=== PATIENT | male | born 1955 | race Caucasian/White ===

== ENCOUNTER 2020-04-09 14:34 | Outpatient (CLI) | payer OTHER, SELFPAY ==
--- NOTE | ~2020-04-09 | US_ITS ---
EXAMINATION: US art doppler w press LE BI DATE: 04/10/2020 08:30 CDT INDICATION: Frontal vascular disease. Spinal stenosis. TECHNIQUE: Segmental pressures and plethysmographic and Doppler waveforms of the brachial and lower e xtremity arteries were obtained. COMPARISON: None. FINDINGS: Right and left brachial artery pressures of 125 mm Hg and 1:30 mm Hg, respectively, are concordant (n ormal difference <= 30 mmHg). The right high-thigh pressure index is 1.28 (normal > 1.2). The right ankle-brachial index (TEMO) is 1 .28 (normal >= 0.9-1.0). The right great toe-brachial index (TBI) is 1.02 (normal >= 0.60). The right lower extremity segmental pressure gradients are normal (normal gradients <= 20-30 mmHg between mimi cent levels on the same leg or the same levels on the two legs). Arterial Doppler waveforms are mixed biphasic and triphasic. The left high-thigh pressure index is 1.38. The left TEMO is 1.21. The left TBI is 0.99. The left lowe r extremity segmental pressure gradients are normal. Arterial Doppler waveforms are mixed biphasic an d triphasic. IMPRESSION: 1. Normal bilateral ankle-brachial indices. Reviewed, dictated and finalized at location A.
--- NOTE | ~2020-04-09 | XR_ITS ---
EXAMINATION: XR lumbar spine 2-3V EXAM DATE: 04/09/2020 15:04 INDICATION: Lumbosacral radiculopathy, low back pain. TECHNIQUE: Lumber spine frontal, lateral, lateral L5-S1 projections for interpretation. There is no prior study for comparison. FINDINGS: Posterior lumbar fusion L3-5, hardware appears intact. There is mild diffuse loss of lumba r vertebral body heights without acute fracture line. Small to moderate-sized thoracolumbar disc dise ase and endplate osteophytes. No endplate erosive change. There is moderate aortoiliac arteriosclerot ic disease. The vertebral bodies are aligned in the AP dimension. Sacrum, sacroiliac joints, sacra l arcuate lines are intact. IMPRESSION: 1. L3-5 fusion. 2. Mild to moderate lumbar disc disease. Reviewed, dictated and finalized at location B.
== END 2020-04-09 14:35 | disposition home or self-care (01) ==
PROVIDERS: PCP Family Medicine; Referring Provider Pain Medicine Interventional Pain Medicine; Visit Provider Family Medicine
DX: M48.00 Spinal stenosis, site unspecified (principal); Z98.1 Arthrodesis status; M51.36 Other intervertebral disc degeneration, lumbar region
CPT/HCPCS: 72100; 93923

== ENCOUNTER → 2021-05-30 14:48 | Outpatient (CLI) | payer OTHER, SELFPAY ==
--- NOTE | ~2021-05-30 | XR_ITS ---
XR lumbar spine 2-3V DATE: 05/30/2021 15:17 INDICATION: Back pain, radiculopathy TECHNIQUE: AP, lateral, coned lateral lumbosacral views COMPARISON: 04/09/2020 lumbar spine FINDINGS: Posterior spinal fusion at L4-S1 including bilateral pedicle screws and rods. Status post lower lumbar laminectomy. Transitional first sacral vertebra. The hardware appears intact without fracture or displacement. There is moderate degenerative disc disease including spurring throughout the lumbar spine. The sacroiliac joints are normally aligned. There is extensive calcification of the abdominal aorta, without evidence of aneurysm. IMPRESSION: Reviewed, dictated and finalized at location A. IMPRESSION:
== END ==
PROVIDERS: PCP Family Medicine; Visit Provider Family Medicine
DX: M47.26 Other spondylosis with radiculopathy, lumbar region (principal); M46.1 Sacroiliitis, not elsewhere classified; M47.813 Spondylosis without myelopathy or radiculopathy, cervicothoracic region; M47.816 Spondylosis without myelopathy or radiculopathy, lumbar region; M51.36 Other intervertebral disc degeneration, lumbar region; I70.0 Atherosclerosis of aorta
CPT/HCPCS: 72100

== ENCOUNTER → 2021-11-09 10:41 | Outpatient (CLI) | payer OTHER, SELFPAY ==
--- NOTE | ~2021-11-09 | MR_ITS ---
EXAMINATION: MR lumbar spine wo con DATE: 11/09/2021 11:52 INDICATION: Lumbar radiculopathy. TECHNIQUE: Magnetic resonance imaging (MRI) of the lumbar spine was performed without intravenous con trast. Sequences included sagittal T2-weighted FSE, sagittal STIR FSE, sagittal T1-weighted FSE, and axial T2-weighted FSE. COMPARISON: Lumbar spine MRI 02/15/2019 FINDINGS: There is 7 degrees levocurvature of thoracolumbar spine. There are changes of posterior fus ion procedure from L4 to S1 with pedicle screws. Vertebral body heights are normal. There is mildly d ecreased disc height at L3-L4 and moderately decreased disc height at L4-L5 and L5-S1. The distal spi nal cord signal intensity is normal. The conus medullaris is at T12-L1. The following disc levels are specifically discussed: L1-L2: The disc does not extend beyond the endplate margin. There is mild left facet joint osteoarthr itis. There is no neural foraminal stenosis. There is no central canal stenosis. L2-L3: The disc is mildly bulging. There is moderate right and mild left facet joint osteoarthritis. There is mild bilateral neural foraminal stenosis. There is no central canal stenosis. L3-L4: The disc is bulging and has an annular fissure. There is severe bilateral facet joint osteoart hritis. There is moderate bilateral neural foraminal stenosis. There is mild central canal stenosis. L4-L5: The disc is bulging. There is severe bilateral facet joint osteoarthritis. There is mild right and moderate left neural foraminal stenosis. There is mild central canal stenosis with posterior dec ompression. L5-S1: The disc is bulging and has an annular fissure. There is severe bilateral facet joint osteoart hritis. There is moderate bilateral neural foraminal stenosis. There is no central canal stenosis. IMPRESSION: 1. Moderate lumbar spondylosis. 2. Posterior fusion procedure from L4 to S1, new from 02/15/2019. Reviewed, dictated and finalized at location A. 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
== END ==
PROVIDERS: Visit Provider Pain Medicine Interventional Pain Medicine
DX: M47.816 Spondylosis without myelopathy or radiculopathy, lumbar region (principal); M47.813 Spondylosis without myelopathy or radiculopathy, cervicothoracic region; M47.26 Other spondylosis with radiculopathy, lumbar region; M47.23 Other spondylosis with radiculopathy, cervicothoracic region; M46.1 Sacroiliitis, not elsewhere classified; G89.4 Chronic pain syndrome; Z98.1 Arthrodesis status
CPT/HCPCS: 72148

== ENCOUNTER → 2022-08-26 11:38 | Outpatient (CLI) | payer OTHER, SELFPAY ==
--- NOTE | ~2022-08-26 | XR_ITS ---
XR cervical spine 4-5V DATE: 08/26/2022 12:31 INDICATION: Neck pain for 3 months. No injury. Surgery 12 years ago. TECHNIQUE: AP, open-mouth, lateral views COMPARISON: 04/03/2017 MR cervical spine examination FINDINGS: Status post anterior cervical spine surgical fusion at C4-C7 including plate and screws and interbody spinal fusion. Hardware appears intact without evidence of fracture or displacement. C1 and C2 are normally aligned and the odontoid process appears intact. No fracture or dislocation or prevertebral soft tissue swelling. C2-3 and C3-4 interspaces appear well preserved. IMPRESSION: Status post anterior and interbody spinal fusion at C4-C7 Reviewed, dictated and finalized at location A. 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
--- NOTE | ~2022-08-26 | XR_ITS ---
EXAMINATION: XR lumbar spine 2-3V DATE: 08/26/2022 12:31 INDICATION: Low back pain TECHNIQUE: Anteroposterior and lateral views of the lumbar spine, and cone-down lateral view of the l umbosacral junction were obtained. COMPARISON: 05/30/2021 FINDINGS: There are changes of posterior fusion and laminectomy from L3 through L5. Bone alignment is normal. There is no fracture. There is severe loss of intervertebral disc space height at L5-S1 and moderate loss of disc space height throughout the remainder of the lumbar spine. The vertebral body h eights are normal. Calcified atherosclerosis is noted. IMPRESSION: 1. Postsurgical changes and moderate spondylosis of the lumbar spine without acute findings. Reviewed, dictated and finalized at location F. 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 Postsurgical changes and moderate spondylosis of the lumbar spine without ac raj findings.
== END ==
PROVIDERS: Visit Provider Pain Medicine Interventional Pain Medicine
DX: M54.17 Radiculopathy, lumbosacral region (principal); Z98.1 Arthrodesis status; M47.896 Other spondylosis, lumbar region
CPT/HCPCS: 72050; 72100

== ENCOUNTER → 2022-10-08 11:07 | Outpatient (CLI) | payer OTHER, SELFPAY ==
--- NOTE | ~2022-10-08 | CT_ITS ---
CT scan of the Neck Technique: 2.5 mm axial scans were obtained through the neck after intravenous administration of 75 c c Omnipaque 350. Coronal and sagittal reconstructions of the neck were obtained. Dose reduction techn ique was used on this scan by utilizing automated exposure control and iterative reconstruction techn ique. The dose-length product (DLP) was 435.33 mGy-cm. Clinical History: Sialoadenitis Findings: There is no evidence of any significant cervical lymphadenopathy. Several small, nonenlarged jugulo- digastric and posterior cervical lymph nodes are noted bilaterally. Parapharyngeal spaces appear norm al bilaterally. Parotid glands and right submandibular gland are somewhat prominent bilaterally, with the right submandibular gland minimally enlarged as compared to the left overall. No focal salivary gland mass evident. No salivary gland ductal dilatation evident. The pharyngeal mucosal spaces appear normal. No soft tissue masses are seen in the neck. The thyroid gland appears normal. Images of the lung apices reveal paraseptal emphysematous change. Impression: Prominent right submandibular gland and mildly prominent bilateral parotid glands. No focal mass, flu id collection, or definite inflammatory change seen. Clinical correlation required. Consider sialoade nitis of the right submandibular gland given enlargement, though the marker is placed at the left nec k. Reviewed, dictated and finalized at location M. LIANCE ATTORNEY Impression: Prominent right submandibular gland and mildly prominent bilateral parotid glan ds. No focal mass, fluid collection, or definite inflammatory change seen. Clin ical correlation required. Consider sialoadenitis of the right submandibular gl and given enlargement, though the marker is placed at the left neck.
[2022-10-08 11:30] LABS: Estimated Glomerular Filt Rate > 60
== END ==
PROVIDERS: Visit Provider Otolaryngology
DX: K11.20 Sialoadenitis, unspecified (principal)
CPT/HCPCS: 70491; Q9967

== ENCOUNTER 2023-04-24 11:52 | Emergency (ER) | payer OTHER, SELFPAY ==
--- NOTE | 2023-04-24 11:59 | ED.SKABFB ---
HPI - Skin/Abscess/Foreign Bdy General Chief complaint: Wound/Laceration Stated complaint: Insect Bite Time Seen by Provider: 04/24/23 11:59 Source: patient Mode of arrival: ambulatory Limitations: no limitations History of Present Illness HPI narrative: Aquiles is a 67-year-old male patient presenting to the clinic today with complaints of a bee sting to the left chest wall. He reports that he was stung on Thursday. States that the area of the sting is red, swollen, and very itchy. He denies any pain. No fever or chills. No difficulty swallowing, drooling, or shortness of breath Related Data Home Medications Medication Instructions Recorded Confirmed gabapentin 600 mg tablet,extended 600 mg PO QPM 02/23/20 release 24 hr (Gralise) hydrochlorothiazide 25 mg tablet 25 mg PO DAILY 02/23/20 baclofen 20 mg tablet 20 mg PO DAILY 10/22/20 aspirin 81 mg chewable tablet 04/24/23 duloxetine 30 mg capsule,delayed mg PO 04/24/23 release hydrocodone 10 mg-acetaminophen tablet 04/24/23 325 mg tablet lisinopril 10 mg tablet mg 04/24/23 simvastatin 20 mg tablet mg 04/24/23 trazodone 50 mg tablet mg 04/24/23 triamcinolone acetonide 0.1 % applic topical 04/24/23 topical cream Allergies Allergy/AdvReac Type Severity Reaction Status Date / Time CYCLOBENZAPRINE HCL AdvReac Mild NAUSEA Uncoded 08/12/21 10:31 Review of Systems Review of Systems: Pertinent positives per HPI. Patient denies any fever, chills, headache, visual changes, dizziness, cough, shortness of breath, chest pain, palpitations, nausea, vomiting, diarrhea, constipation, abdominal pain, or any urinary issues. [facility] Past Medical History Medical History Multilevel degenerative disc disease Spinal stenosis Surgical History Surgical History H/O spinal fusion Family History Family History Father Prostate carcinoma Mother Breast cancer Social History Social History (Reviewed 04/24/23 @ 12:12 by SUSAN Engel Smoking status: Former smoker Smoking end date: 09/18/05 Alcohol intake: current Drinks per week: 1 Substance use: never Substance use type: does not use Spiritual care concerns: No Agree to blood products: No Comments At the time of my signature, I reviewed and agree with the nursing past medical, surgical, social, and family history. There is no relevant family history pertinent to the patient complaint. Exam Narrative: General: Well-developed, well nourished, in no apparent distress Head: Normocephalic, atraumatic Eyes: Pupils equally round and reactive to light bilaterally, EOM intact, sclera and conjunctive clear, no discharge, lids normal Ears: TMs intact and clear, ear canals clear, no drainage, grossly hearing normal. Nose: Nares patent, no discharge, no inflammation, no sinus tenderness. Mouth: Oral pharynx without lesions or masses, good dentition, MMM. Neck: Supple, trachea midline, no enlargement of anterior or posterior cervical nodes, no thyroid masses or goiter palpable. Cardio: Regular rate and rhythm, s1 and s2 normal, no murmur appreciated. Resp: Clear to auscultation bilaterally, no rhonchi, rales, wheezing or rubs Course Course Emergency Course: Portions of this record may have been created with voice recognition software. Level of Care: Express Care Visit Vital Signs Vital signs: Vital signs reviewed MDM - Skin/Abscess/Foreign Bdy MDM Narrative Medical decision making narrative: At the time of visit patient is resting comfortably on the exam table. I suspect patient has a general allergic reaction to a bee sting. I will send him prescription and for prednisone and triamcinolone cream. Supportive measures were discussed with the patient and he voiced understanding of
[2023-04-24 12:01] VITALS: BP 136/68; PULSE 71; RESP 16; TEMP 36.3; O2SAT 98
== END 2023-04-24 12:15 | disposition home or self-care (01) ==
PROVIDERS: Emergency Provider Nurse Practitioner Family
DX: T63.441A Toxic effect of venom of bees, accidental (unintentional), initial encounter (principal); Z87.891 Personal history of nicotine dependence; M48.00 Spinal stenosis, site unspecified
CPT/HCPCS: 99213; G0463

== ENCOUNTER → 2023-09-14 13:39 | Outpatient (CLI) | payer OTHER, SELFPAY ==
--- NOTE | ~2023-09-14 | XR_ITS ---
EXAMINATION: XR cervical spine 4-5V DATE: 09/14/2023 14:46 INDICATION: Radiculopathy, cervical region. TECHNIQUE: 5 views of cervical spine including standing views were obtained. COMPARISON: Cervical spine radiographs 08/26/2022 FINDINGS: Bone alignment is normal. There are changes of anterior fusion procedure from C4 to C7 with healed interbody bone graft and anterior plate and screws. Vertebral body heights are normal. Interv ertebral disc heights are normal. There is multilevel mild facet joint hypertrophy. No central canal stenosis or prevertebral soft tissue swelling. IMPRESSION: 1. Mild cervical spondylosis. 2. Anterior fusion procedure from C4 to C7. Reviewed, dictated and finalized at location E. 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
--- NOTE | ~2023-09-14 | XR_ITS ---
EXAMINATION: XR lumbar spine 2-3V DATE: 09/14/2023 14:46 INDICATION: Radiculopathy, lumbar region. TECHNIQUE: 3 views of lumbar spine standing were obtained. COMPARISON: Lumbar spine radiographs 08/26/22, MRI 10/3106/13/2022 FINDINGS: There is 7 degrees levocurvature of lumbar spine. There are changes of posterior fusion pro cedure from L4 to S1 with pedicle screws. Vertebral heights are normal. There is mildly decreased dis c height at L4-L5 and L5-S1. There are endplate osteophytes at all levels. At L2-L3, there is severe facet joint osteoarthritis. IMPRESSION: 1. Posterior fusion procedure from L4 to S1. 2. Mild lumbar spondylosis. Reviewed, dictated and finalized at location E. TINTER
== END ==
DX: M47.26 Other spondylosis with radiculopathy, lumbar region (principal); M47.23 Other spondylosis with radiculopathy, cervicothoracic region; M46.1 Sacroiliitis, not elsewhere classified; Z98.1 Arthrodesis status
CPT/HCPCS: 72050; 72100

== ENCOUNTER 2024-10-20 11:35 | Outpatient (CLI) | payer MEDICARE, SELFPAY ==
--- NOTE | ~2024-10-20 | XR_ITS ---
XR lumbar spine 2-3V 10/20/2024 12:35 Indication: Lumbar radiculopathy Procedure: 3 views lumbar spine Comparison: 09/14/2023 Findings: Status post fusion at at L4-S1. There are laminectomy changes. There are prominent bridging osteophytes at multiple levels. There is mild levoscoliosis. There is disc height loss at all lumbar levels. There is facet hypertrophy at L4-5 and L5-S1. Impression: 1: Moderate lumbar spondylosis with fusion at L4-S1. Reviewed, dictated and finalized at location B. STRY WORKERS Impression: 1: Moderate lumbar spondylosis with fusion at L4-S1.
--- NOTE | ~2024-10-20 | XR_ITS ---
XR cervical spine 4-5V 10/20/2024 12:35 Indication: Neck pain Procedure: 6 view cervical spine Comparison: 09/14/2023 Findings: There are changes of anterior cervical fusion at C4-C7. There is normal alignment. There is healed interbody bone graft at the fused levels. Vertebral body heights are maintained. There is mil d multilevel facet hypertrophy. No prevertebral soft tissue swelling. Odontoid process within normal limits. Lateral masses normally aligned. Impression: 1: Mild cervical spondylosis with fusion at C4-C7. Reviewed, dictated and finalized at location B. 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
== END 2024-10-20 11:36 | disposition home or self-care (01) ==
DX: M47.26 Other spondylosis with radiculopathy, lumbar region (principal); M47.22 Other spondylosis with radiculopathy, cervical region
CPT/HCPCS: 72050; 72100